=== PATIENT | male | born 1930 | race Caucasian/White ===

== ENCOUNTER 2017-06-07 13:06 | Observation (INO) | payer OTHER ==
[2017-06-07 13:24] VITALS: BP 138/81; PULSE 98; RESP 16; TEMP 97.5; O2SAT 97
[2017-06-07] MEDS ORDERED: MIRT1TAB PO (13:30)
[2017-06-07] MEDS ORDERED: TAMS0.4C4 (13:30)
[2017-06-07] MEDS ORDERED: ASPI-516 CHEW (13:30)
--- NOTE | 2017-06-07 13:38 | PD ---
HPI Chief Complaint: left arm and leg weakness Time Seen by Provider: 13:18 Travel History International Travel<30 days: No Contact w/Intl Traveler<30days: No Traveled to known affect area: No History of Present Illness HPI 86yo M with PMH of COPD, CKD presents to the ED with c/o left arm and left leg weakness since yesterday. Said last normal was 2 days ago. Denies any fever, chest pain, sob, n/v, abdominal pain, numbness. PFSH Past Medical History Cardiovascular Problems: Yes (A-Fib) Respiratory: Yes (COPD) ?: Not Social History Tobacco Use: Yes Allergies-Medications (Allergen,Severity, Reaction): Coded Allergies: No Known Allergies (Unverified , 06/07/17) Reported Meds & Prescriptions Reported Meds & Active Scripts Active Reported Diltiazem CD 24 HR 120 Mg Caper 120 Mg PO DAILY Aspirin 81 Mg Chew 81 Mg CHEW DAILY Mirtazapine 7.5 Mg Tab 7.5 Mg PO HS Review of Systems Except as stated in HPI: all other systems reviewed are Neg Physical Exam Narrative GENERAL: 86yo M not in distress. SKIN: Right lip and neck tj. HEAD: Atraumatic. Normocephalic. EYES: Pupils equal and round. No scleral icterus. No injection or drainage. ENT: No nasal bleeding or discharge. Mucous membranes pink and moist. NECK: Trachea midline. No JVD. CARDIOVASCULAR: Regular rate and rhythm. No murmur appreciated. RESPIRATORY: No accessory muscle use. Clear to auscultation. Breath sounds equal bilaterally. GASTROINTESTINAL: Abdomen soft, non-tender, nondistended. MUSCULOSKELETAL: No obvious deformities. No clubbing. No cyanosis. No edema. NEUROLOGICAL: Awake and alert. No obvious cranial nerve deficits. Motor grossly within normal limits. Normal speech. NIH stroke 0. Sensation equal. PSYCHIATRIC: Appropriate mood and affect; insight and judgment normal. Data Data Last Documented VS Vital Signs Date Time Temp Pulse Resp B/P (MAP) Pulse Ox O2 Delivery O2 Flow Rate FiO2 06/07/17 15:29 80 125/64 (84) 93 06/07/17 13:24 97.[address] Brain W/O Iv Contrast(Rout) (06/07/17 ) Complete Blood Count With Diff (06/07/17 13:28) Basic Metabolic Panel (Bmp) (06/07/17 13:28) Prothrombin Time / Inr (Pt) (06/07/17 13:28) Act Partial Throm Time (Ptt) (06/07/17 13:28) Aspirin (Aspirin) (06/07/17 15:45) Admit Order (Ed Use Only) (06/07/17 15:46) Labs Laboratory Tests Test 06/07/17 13:58 White Blood Count 9.4 TH/MM3 Red Blood Count 4.45 MIL/MM3 Hemoglobin 13.3 GM/DL Hematocrit 39.8 % Mean Corpuscular Volume 89.4 FL Mean Corpuscular Hemoglobin 29.8 PG Mean Corpuscular Hemoglobin Concent 33.4 % Red Cell Distribution Width 15.4 % Platelet Count 120 TH/MM3 Mean Platelet Volume 10.4 FL Neutrophils (%) (Auto) 51.3 % Lymphocytes (%) (Auto) 31.0 % Monocytes (%) (Auto) 13.4 % Eosinophils (%) (Auto) 3.0 % Basophils (%) (Auto) 1.3 % Neutrophils # (Auto) 4.8 TH/MM3 Lymphocytes # (Auto) 2.9 TH/MM3 Monocytes # (Auto) 1.3 TH/MM3 Eosinophils # (Auto) 0.3 TH/MM3 Basophils # (Auto) 0.1 TH/MM3 CBC Comment AUTO DIFF Differential Comment AUTO DIFF CONFIRMED Platelet Estimate LOW Platelet Morphology Comment ENLARGED Red Cell Morphology Comment NORMAL Prothrombin Time 10.8 SEC Prothromb Time International Ratio 1.1 RATIO Activated Partial Thromboplast Time 26.9 SEC Blood Urea Nitrogen 21 MG/DL Creatinine 0.99 MG/DL Random Glucose 115 MG/DL Calcium Level 9.6 MG/DL Sodium Level 137 MEQ/L Potassium Level 4.5 MEQ/L Chloride Level 103 MEQ/L Carbon Dioxide Level 28.8 MEQ/L Anion Gap 5 MEQ/L Estimat Glomerular Filtration Rate 71 ML/MIN MDM Medical Decision Making Medical Screen Exam Complete: Yes Emergency Medical Condition: Yes Differential Diagnosis CVA vs. TIA Narrative Course 86yo M with c/o left arm and leg weakness since yesterday. On physical exam, I do not appreciate weakness on the left side. Will do CT brain and labs. Labs reviewed, no leukocytosis. H/H normal. Thrombocytopenia at 120,000. BUN mildly elevated at 21. CT brain showed chronic ischemic small vessel vasculopathy. 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 No acute intracranial abnormality. Pt given aspirin. Will admit for TIA workup. Discussed with Dr. Ba and accepted to her service. Diagnosis Primary Impression: TIA (transient ischemic attack) Qualified Codes: G45.9 - Transient cerebral ischemic attack, unspecified Admitting Information Admitting Physician Requests: Teena Pickens DO Jun 07, 2017 13:38
--- NOTE | 2017-06-07 14:27 | RADRPT ---
EXAM DATE/TIME: 06/07/2017 14:14 [facility] COMPARISON: No previous studies available for comparison. INDICATIONS : Left upper and lower extremity weakness. RADIATION DOSE: 59.80 CTDIvol (mGy) MEDICAL HISTORY : Chronic obstructive pulmonary disease. Atrial fibrillation. SURGICAL HISTORY : None. ENCOUNTER: Initial ACUITY: 2 days PAIN SCALE: 0/10 LOCATION: cranial TECHNIQUE: Multiple contiguous axial images were obtained of the head. Using automated exposure control and adj ustment of the mA and/or kV according to patient size, radiation dose was kept as low as reasonably a chievable to obtain optimal diagnostic quality images. DICOM format image data is available electro nically for review and comparison. FINDINGS: CEREBRUM: The ventricles are normal for age. Remote appearing basal ganglia lacunar infarcts. There is low-dens ity throughout the white matter. No evidence of midline shift, mass lesion, hemorrhage or acute infar ction. No extra-axial fluid collections are seen. POSTERIOR FOSSA: The cerebellum and brainstem are intact. The 4th ventricle is midline. The cerebellopontine angle i s unremarkable. EXTRACRANIAL: The visualized portion of the orbits is intact. SKULL: The calvaria is intact. No evidence of skull fracture. CONCLUSION: 1. Chronic ischemic small vessel vasculopathy. 2. 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 3. No acute intracranial abnormality. Alistair Wu MD on June 07, 2017 at 14:23 Board Certified Radiologist. This report was verified electronically.
[2017-06-07 14:28] LABS: BICARBONATE 28.8 MEQ/L (21.0-32.0); CALCIUM 9.6 MG/DL (8.5-10.1)
[2017-06-07 14:30] LABS: INTERNATIONAL NORMALIZED RATIO 1.1 RATIO; PROTHROMBIN TIME - PATIENT 10.8 SEC (9.8-11.6)
[2017-06-07 14:32] VITALS: BP 123/76; PULSE 85; O2SAT 98
[2017-06-07 14:32] LABS: AUTOMATED NEUTROPHIL # 4.8 TH/MM3 (1.8-7.7); BASOPHIL # 0.1 TH/MM3 (0-0.2); BASOPHIL % 1.3 % (0.0-2.0); CREATININE 0.99 MG/DL (0.60-1.30); EOSINOPHIL # 0.3 TH/MM3 (0-0.4); HEMATOCRIT 39.8 % (39.0-51.0); HEMOGLOBIN 13.3 GM/DL (13.0-17.0); LYMPHOCYTE # 2.9 TH/MM3 (1.0-4.8); MEAN CELL VOLUME 89.4 FL (80.0-100.0); MEAN CORPUSCULAR HEMOGLOBIN 29.8 PG (27.0-34.0); MEAN CORPUSCULAR HGB CONC 33.4 % (32.0-36.0); MEAN PLATELET VOLUME 10.4 FL (7.0-11.0); MONO % 13.4 % (0.0-8.0); MONOCYTE # 1.3 TH/MM3 (0-0.9); NEUT % 51.3 % (16.0-70.0); PLATELET COUNT 120 TH/MM3 (150-450); RED BLOOD COUNT 4.45 MIL/MM3 (4.50-5.90); RED CELL DISTRIBUTION WIDTH 15.4 % (11.6-17.2); WHITE BLOOD COUNT 9.4 TH/MM3 (4.0-11.0)
[2017-06-07 15:29] VITALS: BP 125/64; PULSE 80; O2SAT 93
[2017-06-07] MEDS ORDERED: ASPIRIN 325 MG TAB PO ONE (15:45)
[2017-06-07] MEDS ORDERED: SODIUM CHLORIDE 0.9% FLUSH 10 ML FLUSH IV FLUSH PRN (16:15)
[2017-06-07] MEDS ORDERED: GLUCAGON 1 MG/ML VIAL OTHER PRN (16:15)
[2017-06-07] MEDS ORDERED: DEXTROSE 50% IN WATER 50 ML VIAL(D50) IV PUSH PRN (16:15)
[2017-06-07] MEDS ORDERED: DILT120C50 PO (16:31)
[2017-06-07 17:00] VITALS: BP 136/81; PULSE 105; RESP 20; TEMP 97; O2SAT 94
[2017-06-07] MEDS: INSULIN ASPART SUPPLEMENTAL SCALE SQ SCH ×2 (17:00→22:27)
[2017-06-07] MEDS: SODIUM CHLOR 0.9% 1000 ML INJ 1,000 ML IV SCH (17:13)
[2017-06-07 18:21] VITALS: PULSE 87
[2017-06-07 20:00] VITALS: BP 123/81; PULSE 120; PULSE 92; RESP 16; TEMP 98.4; O2SAT 95
[2017-06-07] MEDS ORDERED: PILL SPLITTER OTHER PRN (21:00)
[2017-06-07] MEDS: SODIUM CHLORIDE 0.9% FLUSH 10 ML FLUSH IV FLUSH SCH (22:26)
[2017-06-07] MEDS: MIRTAZAPINE 15 MG TAB PO SCH (22:26)
[2017-06-08] VITALS (8 sets, daily range): BP systolic 113–164; BP diastolic 72–89; PULSE 97–141; RESP 16–24; TEMP 96.9–98.6; O2SAT 95–96
[2017-06-08] MEDS: SODIUM CHLOR 0.9% 1000 ML INJ 1,000 ML IV SCH ×2 (06:14→09:48)
--- NOTE | 2017-06-08 07:53 | HHI.HP ---
[facility] Primary [facility] Physician Non-Staff Admission Diagnosis TIA Diagnoses: (1) Atrial fibrillation with RVR (2) TIA (transient ischemic attack) Chief Complaint: Left arm & leg weakness Travel History International Travel<30 Days: No Contact w/Intl Traveler <30 Da: No Traveled to Known Affected Are: No History of Present Illness The patient is an 86 year old male who presented to the ER with complaint of weakness in his left arm and left leg that started 2 days ago. He states that the weakness seems to be better today. He denies headache or recent vision changes. 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 Denies history of stroke. Denies chest pain or dyspnea. Does report cough ongoing for the past 6 weeks. Review of Systems Constitutional: DENIES: Fever, Chills, Night Sweats Eyes: DENIES: Blurred vision, Vision loss Ears, nose, mouth, throat: DENIES: Hearing loss Respiratory: COMPLAINS OF: Cough, DENIES: Wheezing, Sputum production, Shortness of breath Cardiovascular: DENIES: Chest pain, Palpitations, Dyspnea on Exertion, Lower Extremity Edema Gastrointestinal: DENIES: Abdominal pain, Constipation, Diarrhea, Nausea, Vomiting Genitourinary: DENIES: Urinary frequency, Urinary incontinence, Urgency, Hematuria, Dysuria, Nocturia Musculoskeletal: DENIES: Joint pain, Muscle aches Integumentary: DENIES: Pruritus, Rash Hematologic/lymphatic: DENIES: Bruising Neurologic: COMPLAINS OF: Localized weakness, DENIES: Headache, Paresthesias Past Family Social History Past Medical History Atrial fibrillation COPD Past Surgical History Right hand surgery Lip surgery Reported Medications Aspirin 81 mg daily Mirtazapine 7.5 mg daily at bedtime Flomax 0.4 mg daily at bedtime Diltiazem CD 120 mg daily Allergies: Coded Allergies: No Known Allergies (Unverified , 06/07/17) Family History Patient is adopted. Social History Smokes one pack per day. States that he has cut down over the last 2-3 months and is now at 3 cigarettes per day. Rare alcohol use. Denies illicit drug use. Physical Exam Vital Signs Vital Signs Date Time Temp Pulse Resp B/P (MAP) Pulse Ox O2 Delivery O2 Flow Rate FiO2 06/08/17 04:00 98.6 130 16 113/76 (88) 95 06/08/17 00:00 98.1 141 16 154/72 (99) 95 06/07/17 20:00 92 06/07/17 20:00 98.4 120 16 123/81 (95) 95 06/07/17 18:21 87 06/07/17 17:06 06/07/17 17:00 97.0 105 20 136/81 (99) 94 06/07/17 15:29 80 125/64 (84) 93 06/07/17 14:32 85 123/76 (92) 98 06/07/17 13:24 97.5 98 16 138/81 (100) 97 Physical Exam GENERAL: Elderly male in no acute distress. HEENT: Normocephalic, atraumatic. Pupils equal, round and reactive. Extraocular movements intact. No scleral icterus. No injection or drainage. Oropharynx is clear. Mucous membranes are moist. Large port wine stain with enlargement of the lower lip. CARDIOVASCULAR: Irregular, tachycardic. RESPIRATORY: Clear to auscultation. No wheezes, rales, or rhonchi. Breathing is non-labored. GASTROINTESTINAL: Abdomen soft, non-tender, nondistended. EXTREMITIES: No lower extremity edema. No calf tenderness. PSYCH: Alert and oriented x 3. NEURO: Cranial nerves II through XII are grossly intact. Strength is 4/5 in all 4 extremities, equal bilaterally. Laboratory Laboratory Tests Test 06/07/17 13:58 06/08/17 05:40 White Blood Count 9.4 Red Blood Count 4.45 Hemoglobin 13.3 Hematocrit 39.8 Mean Corpuscular Volume 89.4 Mean Corpuscular Hemoglobin 29.8 Mean Corpuscular Hemoglobin Concent 33.4 Red Cell Distribution Width 15.4 Platelet Count 120 Mean Platelet Volume 10.4 Neutrophils (%) (Auto) 51.3 Lymphocytes (%) (Auto) 31.0 Monocytes (%) (Auto) 13.4 Eosinophils (%) (Auto) 3.0 Basophils (%) (Auto) 1.3 Neutrophils # (Auto) 4.8 Lymphocytes # (Auto) 2.9 Monocytes # (Auto) 1.3 Eosinophils # (Auto) 0.3 Basophils # (Auto) 0.1 CBC Comment AUTO DIFF Differential Comment AUTO DIFF CONFIRMED Platelet Estimate LOW Platelet Morphology Comment ENLARGED Red Cell Morphology Comment NORMAL Prothrombin Time 10.8 Prothromb Time International Ratio 1.1 Activated Partial Thromboplast Time 26.9 Blood Urea Nitrogen 21 Creatinine 0.99 Random Glucose 115 Calcium Level 9.6 Sodium Level 137 Potassium Level 4.5 Chloride Level 103 Carbon Dioxide Level 28.8 Anion Gap 5 Estimat Glomerular Filtration Rate 71 Result Diagram: 06/07/17 1358 06/07/17 1358 Imaging Last Impressions Head CT 06/07/17 0000 Signed Impressions: Service Date/Time: Wednesday, June 07, 2017 14:14 - CONCLUSION: 1. Chronic ischemic small vessel vasculopathy. 2. 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 3. No acute intracranial abnormality. MD Jose Palma VTE Risk Assessment Jose VTE Risk Assessment: Mod/High Risk (score >= 2) Caprini Risk Assessment Model Point Value = 1 Point Value = 2 Point Value = 3 Point Value = 5 Age 41-60 Minor surgery BMI > 25 kg/m2 Swollen legs Varicose veins or History of unexplained or recurrent spontaneous Oral contraceptives or hormone replacement Sepsis (< 1 month) Serious lung disease, including pneumonia (< 1 month) Abnormal pulmonary function Acute myocardial infarction Congestive heart failure (< 1 month) History of inflammatory bowel disease Medical patient at bed rest Age 61-74 Arthroscopic surgery Major open surgery (> 45 min) Laparoscopic surgery (> 45 min) Malignancy Confined to bed (> 72 hours) Immobilizing plaster cast Central venous access Age >= 75 History of VTE Family history of VTE Factor V Leiden Prothrombin [id number] Lupus anticoagulant Anticardiolipin antibodies Elevated serum homocysteine Heparin-induced thrombocytopenia Other congenital or acquired thrombophilia Stroke (< 1 month) Elective arthroplasty Hip, pelvis, or leg fracture Acute spinal cord injury (< 1 month) Prophylaxis Regimen Total Risk Factor Score Risk Level Prophylaxis Regimen 0-1 Low Early ambulation 2 Moderate Order ONE of the following: *Sequential Compression Device (SCD) *Heparin 5000 units SQ BID 3-4 Higher Order ONE of the following medications: *Heparin 5000 units SQ TID *Enoxaparin/Lovenox 40 mg SQ daily (WT < 150 kg, CrCl > 30 mL/min) *Enoxaparin/Lovenox 30 mg SQ daily (WT < 150 kg, CrCl > 10-29 mL/min) *Enoxaparin/Lovenox 30 mg SQ BID (WT < 150 kg, CrCl > 30 mL/min) AND/OR *Sequential Compression Device (SCD) 5 or more Highest Order ONE of the following medications: *Heparin 5000 units SQ TID (Preferred with Epidurals) *Enoxaparin/Lovenox 40 mg SQ daily (WT < 150 kg, CrCl > 30 mL/min) *Enoxaparin/Lovenox 30 mg SQ daily (WT < 150 kg, CrCl > 10-29 mL/min) *Enoxaparin/Lovenox 30 mg SQ BID (WT < 150 kg, CrCl > 30 mL/min) AND *Sequential Compression Device (SCD) Assessment and Plan Assessment and Plan 1. TIA: Patient presented with left-sided weakness. Symptoms have improved. The patient is currently in atrial fibrillation. Continue aspirin. Will likely need full anticoagulation, but may present a fall risk. PT/OT/ST. Echocardiogram ordered. Check carotid ultrasound, brain MRI. Consult neurology. Fasting lipid panel is pending. The patient is not currently on a statin. 2. Atrial fibrillation with RVR: Rate increased to the 140s overnight, now 100- 110. Resume home dose of oral Cardizem and monitor on telemetry. Would benefit from full anticoagulation if no other contraindications. 3. History of COPD: Oxygen as needed. Bronchodilators as needed. 4. Cough: Nonproductive. Ongoing x 6 weeks. Patient has significant history of smoking. Check CXR. 5. Tobacco abuse: Counselled to quit smoking. 6. DVT prophylaxis: Khalif, KAI day. Problem Qualifiers (1) TIA (transient ischemic attack): Qualified Codes: G45.9 - Transient cerebral ischemic attack, unspecified Diallo Ellis MD Jun 08, 2017 07:52
[2017-06-08] MEDS: INSULIN ASPART SUPPLEMENTAL SCALE SQ SCH ×4 (08:00→20:19)
[2017-06-08] MEDS ORDERED: RESP: ALBUTEROL 2.5 MG/IPRATROPIUM 0.5 MG NEB (PRN) NEB (08:30)
--- NOTE | 2017-06-08 08:45 | RADRPT ---
EXAM DATE/TIME: 06/08/2017 08:01 [facility] COMPARISON: No previous studies available for comparison. INDICATIONS : Transient ischemic attack. MEDICAL HISTORY : Chronic obstructive pulmonary disease. Hypercholesterolemia. Atrial fibrillation. Peripheral vascul ar disease. Skin cancer, scalp. SURGICAL HISTORY : Hernia repair. Right hand surgery. ENCOUNTER: Initial ACUITY: 1 day PAIN SCORE: 0/10 LOCATION: Bilateral neck PEAK SYSTOLIC VELOCITIES (cm/sec): ICA/CCA RATIO: Right: 0.5 Left: 0.9 ICA: Right: 100 Left: 83 CCA: Right: 192 Left: 93 ECA: Right: 201 Left: 72 VERTEBRAL: Right: 56 antegrade Left: 56 antegrade Elevated flow velocities and ICA/CCA ratios have been found to correlate with increased degrees of vessel stenosis, calculated as percentage of diameter relative to a normal segment of distal ICA/CCA FINDINGS: RIGHT CAROTID: Patchy eccentric plaque in common carotid artery and at carotid bifurcation. Areas of stenosis less t vanessa 50%.. LEFT CAROTID: Eccentric plaque at the carotid bifurcation producing less than 50% stenosis VERTEBRAL ARTERIES: Antegrade flow is seen in both vertebral arteries. MISCELLANEOUS: None. CONCLUSION: No evidence of flow-limiting carotid stenosis. Claudio Salguero MD on June 08, 2017 at 8:38 Board Certified Radiologist. This report was verified electronically.
[2017-06-08] MEDS: ASPIRIN 325 MG TAB PO SCH (09:47)
[2017-06-08] MEDS: DILTIAZEM-CD 120 MG CAP ER PO SCH (09:47)
[2017-06-08] MEDS: SODIUM CHLORIDE 0.9% FLUSH 10 ML FLUSH IV FLUSH SCH ×2 (09:48→20:19)
[2017-06-08 10:35] LABS: CHOLESTEROL/ HDL RATIO 3.13 RATIO; HDL CHOLESTEROL 44.3 MG/DL (40.0-60.0)
--- NOTE | 2017-06-08 13:24 | RADRPT ---
EXAM DATE/TIME: 06/08/2017 11:16 [facility] COMPARISON: No previous studies available for comparison. INDICATIONS : TIA. Left sided weakness. MEDICAL HISTORY : Chronic obstructive pulmonary disease. Afib, Skin cancer. SURGICAL HISTORY : Abdominal aortic aneurysm repair. Hernia sx, Back sx. ENCOUNTER: Initial ACUITY: 2 day PAIN SCORE: 3/10 LOCATION: Left cranial TECHNIQUE: Multiplanar, multisequence MRI of the brain was performed without contrast. FINDINGS: There is moderate symmetric central and cortical atrophic change. Moderate T2 prolongation in periven tricular and subcortical white matter which has appearance of microvascular ischemic change. There a few punctate areas of focally restricted diffusion in the right frontoparietal subcortical wh ite matter and high convexity centrum semiovale consistent with small lacunar infarcts. There is no evidence of intracranial hemorrhage or mass. Extracranial structures are benign and intact. CONCLUSION: Several tiny areas of subacute infarction in the high convexity right frontoparietal subcortical radha on Atrophy and chronic ischemic white matter changes Claudio Salguero MD on June 08, 2017 at 13:10 Board Certified Radiologist. This report was verified electronically.
--- NOTE | 2017-06-08 13:32 | ECHRPT ---
Indication: cva/tia CONCLUSIONS Normal left ventricular size. The left ventricular systolic function is severely reduced with an estimated ejection fraction in th e range of 30-35%. The left atrial size is mildly dilated. The right atrial size is siwq-wn-yrzhwpoxdl dilated. aortic root 4.1 Xhpc-my-bjxwshhj mitral valve regurgitation. Mild aortic valve regurgitation. P1/2t 471 There is mild tricuspid valve regurgitation. The estimated pulmonary arterial pressure is 53 mmHg. BP: / HR: Rhythm: MEASUREMENTS (Male / Female) Normal Values Technical Quality:Good 2D ECHO LV Diastolic Diameter PLAX 4.8 cm 4.2 - 5.9 / 3.9 - 5.3 cm LV Systolic Diameter PLAX 4.1 cm IVS Diastolic Thickness 0.9 cm 0.6 - 1.0 / 0.6 - 0.9 cm LVPW Diastolic Thickness 1.0 cm 0.6 - 1.0 / 0.6 - 0.9 cm LV Relative Wall Thickness 0.4 RV Internal Dim ED PLAX 2.5 cm M-MODE Aortic Root Diameter MM 4.1 cm LA Systolic Diameter MM 3.6 cm LA Ao Ratio MM 0.9 AV Cusp Separation MM 1.7 cm DOPPLER AI Peak Velocity 389.0 cm/s AI Peak Gradient 60.5 mmHg AI Pressure Half Time 471.0 ms LV E' Lateral Velocity 6.5 cm/s LV E' Septal Velocity 6.5 cm/s TR Peak Velocity 328.0 cm/s TR Peak Gradient 43.0 mmHg Right Atrial Pressure 10.0 mmHg Pulmonary Artery Systolic Pressu 53.0 mmHg Right Ventricular Systolic Press 53.0 mmHg FINDINGS LEFT VENTRICLE Normal left ventricular size. The left ventricular systolic function is severely reduced with an estimated ejection fraction in th e range of 30-35%. RIGHT VENTRICLE Normal right ventricular size and systolic function. LEFT ATRIUM The left atrial size is mildly dilated. RIGHT ATRIUM The right atrial size is podi-te-oaatgwztny dilated. ATRIAL SEPTUM Normal atrial septal thickness without atrial level shunting by limited color doppler interrogation. AORTA aortic root 4.1 MITRAL VALVE Structurally normal mitral valve. Cuwg-qk-jkghwqpo mitral valve regurgitation. AORTIC VALVE Trileaflet aortic valve. Mild aortic valve regurgitation. P1/2t 471 TRICUSPID VALVE Structurally normal tricuspid valve. There is mild tricuspid valve regurgitation. The estimated pulmonary arterial pressure is 53 mmHg. PULMONARY VALVE No pulmonary valve regurgitation or stenosis. VESSELS The inferior vena cava is normal in size. PERICARDIUM No pericardial effusion. Pee Mccann MD, FACC (Electronically Signed) Final Date:08 June 2017 13:31
[2017-06-08] MEDS: MIRTAZAPINE 15 MG TAB PO SCH (20:18)
--- NOTE | 2017-06-08 21:57 | EKG ---
Date Performed: 06/08/2017 Time Performed: 08:56:07 PTAGE: 86 years EKG: ATRIAL FIBRILLATION WITH RAPID VENTRICULAR RESPONSE MINIMAL ST DEPRESSION ABNORMAL RHYTHM E CG NO PREVIOUS TRACING DOCTOR: Silvestre Moran Interpretating Date/Time 06/08/2017 21:55:31
[2017-06-08 22:30] LABS: HEMOGLOBIN A1C 6.3 % (4.3-6.0)
--- NOTE | 2017-06-08 22:35 | MB ---
cc: ENRIQUE MONTEZ M.D. DATE OF CONSULTATION: 06/08/2017 DATE OF : 1930, 86 years old. REASON FOR CONSULTATION: Stroke. HISTORY OF PRESENT ILLNESS: The patient is an 86 year-old man, very hard of hearing, who comes in with some left-sided weakness, leg and arm. He stated he lives in an assisted living facility. It started a couple of days prior. Otherwise he cannot give me much history. He has a history, per chart, of atrial fibrillation. When I asked him about that, he had no knowledge of it. History of COPD. PAST SURGICAL HISTORY: Right hand surgery. Lip surgery. CURRENT MEDICATIONS: 1. Baby aspirin. 2. Mirtazapine. 3. Flomax. 4. Diltiazem. He has BPH. ALLERGIES: None reported. FAMILY HISTORY: He is adopted. SOCIAL HISTORY: He still smokes a pack per day but trying to cut down. Rarely drinks. No illicit drug use. PHYSICAL EXAMINATION: VITAL SIGNS: Temperature is 97, heart rate 119, respiratory rate 20, blood pressure is 135/85. NECK: His neck is supple. No bruits. HEART: Irregularly irregular. LUNGS: Lungs are clear. NEUROLOGIC: He is awake and alert, very hard of hearing, speech is normal, pupils reactive. Face symmetrical. Tongue midline. Motor de la o he has some left-sided deficits at best a 4/5 proximally and distally, bilateral upper and lower extremity. Toes withdraws. DTRs are 1 to 2+. Gait is withheld. Cerebellar is normal on the right. LABORATORY DATA CBC: platelets 120,000. Chemistries: Glucose 115, A1c pending. Triglycerides 84, cholesterol 139, LDL 78, HDL 44.3, BUN is 21, GFR 71. Coags are normal. IMAGING STUDIES Brain MRI: He had tiny subacute infarcts in the right frontal parietal region. There is also white matter change and atrophy. Carotid ultrasound was unremarkable. 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 RECOMMENDATIONS: The recommendations are to start him on anticoagulation of choice. If there is no other contraindication, get a 2-D echocardiogram, watch him for RVR. If he is, then he needs to be placed on some Cardizem. Smoking cessation recommended. Discharge planning, depending on how he does with PT/OT. MD LUCRETIA Joshi /2:58 PM /10:24 PM
[2017-06-09] VITALS: BP 129/77; PULSE 108; RESP 18; TEMP 96.2
[2017-06-09] MEDS: SODIUM CHLOR 0.9% 1000 ML INJ 1,000 ML IV SCH (03:50)
[2017-06-09 06:48] LABS: CHLORIDE 108 MEQ/L (98-107); SODIUM (NA) 139 MEQ/L (136-145)
[2017-06-09 06:52] LABS: ALBUMIN 2.8 GM/DL (3.4-5.0); BICARBONATE 23.1 MEQ/L (21.0-32.0); BLOOD UREA NITROGEN 19 MG/DL (7-18); CALCIUM 8.9 MG/DL (8.5-10.1); GLUCOSE,RANDOM 85 MG/DL (74-106)
[2017-06-09 06:55] LABS: ALT (GPT) 16 U/L (12-78); AST (GOT) 19 U/L (15-37); GLOMERULAR FILTRATION RATE 91 ML/MIN (>89)
[2017-06-09 06:57] LABS: TOTAL BILIRUBIN ADULT 0.6 MG/DL (0.2-1.0); TOTAL PROTEIN 6.1 GM/DL (6.4-8.2)
[2017-06-09 06:58] LABS: ALKALINE PHOSPHATASE 82 U/L (45-117)
[2017-06-09 08:00] VITALS: BP 127/78; PULSE 103; PULSE 107; RESP 16; TEMP 96.5; O2SAT 94
[2017-06-09] MEDS: INSULIN ASPART SUPPLEMENTAL SCALE SQ SCH ×2 (08:00→12:00)
[2017-06-09] MEDS: ASPIRIN 325 MG TAB PO SCH (08:36)
[2017-06-09] MEDS: DILTIAZEM-CD 120 MG CAP ER PO SCH (08:36)
[2017-06-09] MEDS: SODIUM CHLORIDE 0.9% FLUSH 10 ML FLUSH IV FLUSH SCH (08:37)
--- NOTE | 2017-06-09 11:39 | RADRPT ---
EXAM DATE/TIME: 06/09/2017 11:12 [facility] COMPARISON: No previous studies available for comparison. INDICATIONS : Cough and congestion. MEDICAL HISTORY : Chronic obstructive pulmonary disease. Afib, Skin cancer. SURGICAL HISTORY : Abdominal aortic aneurysm repair. Hernia sx, Back sx. ENCOUNTER: Initial ACUITY: 1 week PAIN SCORE: 0/10 LOCATION: Bilateral chest FINDINGS: Diffuse reticulonodular interstitial thickening is present, most significantly in the perihilar regio ns and lower lung zones. Chronicity is undetermined. It appear to be small bilateral effusions. Cardi ac contour is grossly satisfactory for technique and projection. Mild kyphotic accentuation with dege nerative change in the spine. 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 Claudio Salguero MD on June 09, 2017 at 11:37 Board Certified Radiologist. This report was verified electronically.
[2017-06-09 12:00] VITALS: BP 138/62; PULSE 80; RESP 16; TEMP 97.4; O2SAT 96
--- NOTE | 2017-06-09 15:07 | HHI.FF ---
Face to Face Verification Diagnosis: (1) Weakness (2) Physical debility (3) Atrial fibrillation with RVR (4) TIA (transient ischemic attack) Physical Therapy Order: Evaluate and Treat, Improve ambulation, Strength and gait training Instructions: Strength and balance training I have seen patient Jose Roberto Ludwig on 06/09/17. My clinical findings support the need for the requested home health care services because: Ltd mobility - disease progression Deconditioned w/ increased weakness Limited ability to care for self High risk of falls I certify that my clinical findings support that this patient is homebound because: Unsteady gait/balance Unsafe to leave home unassisted Garcia Rockwell MD Jun 09, 2017 15:07
[2017-06-09] MEDS ORDERED: PLAV75TA29 PO (15:11)
[2017-06-09] MEDS ORDERED: ASPI81 CHEW (15:11)
--- NOTE | 2017-06-09 16:41 | HHI.DS ---
Discharge Summary Admission Date Jun 07, 2017 at 15:47 Discharge Date: Jun 09, 2017 Admitting Diagnosis TIA (1) Atrial fibrillation with RVR ICD Code: I48.91 - Unspecified atrial fibrillation Diagnosis: Principal (2) TIA (transient ischemic attack) ICD Code: G45.9 - Transient cerebral ischemic attack, unspecified Diagnosis: Principal Status: Acute Procedures None Brief History - From Admission The patient is an 86 year old male who presented to the ER with complaint of weakness in his left arm and left leg that started 2 days ago. He states that the weakness seems to be better today. He denies headache or recent vision changes. 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 Denies history of stroke. Denies chest pain or dyspnea. Does report cough ongoing for the past 6 weeks. CBC/BMP: 06/07/17 1358 06/09/17 0535 Significant Findings Laboratory Tests Test 06/07/17 13:58 06/08/17 05:40 06/09/17 05:35 Red Blood Count 4.45 MIL/MM3 (4.50-5.90) Platelet Count 120 TH/MM3 (150-450) Monocytes (%) (Auto) 13.4 % (0.0-8.0) Monocytes # (Auto) 1.3 TH/MM3 (0-0.9) Platelet Estimate LOW (NORMAL) Platelet Morphology Comment ENLARGED (NORMAL) Blood Urea Nitrogen 21 MG/DL (7-18) 19 MG/DL (7-18) Random Glucose 115 MG/DL (74-106) Estimat Glomerular Filtration Rate 71 ML/MIN (>89) Hemoglobin A1c 6.3 % (4.3-6.0) Total Protein 6.1 GM/DL (6.4-8.2) Albumin 2.8 GM/DL (3.4-5.0) Chloride Level 108 MEQ/L (98-107) Hospital Course Mr. Ludwig is an 86-year-old male. He came into the hospital originally with weakness in the left arm. Suspicion for CVA versus TIA was present. 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 This is possibly a new infarction versus TIA. Symptoms have improved. He is recommended to continue physical therapy at time of discharge. Neurology has also recommended increasing the patient's anticoagulation. Previously he is just on aspirin. He is a fall risk so I discussed with the patient and his daughter occurred to discuss options for blood thinners. Options from a complete conversion to stronger blood thinners such as Xarelto versus remaining on current dose of aspirin and the benefits and risks of each were discussed. At this point to respect both of his risk for CVA and his risk for falls the patient and his daughter have decided that Plavix with aspirin is an ex-modality to try. He is determined to be stable by physical therapy for transfer back to his assisted living facility. Physical therapy will continue at that location. Medically stable for discharge to home today. Pt Condition on Discharge: Stable Discharge Disposition: Discharge Home Discharge Time: > 30 minutes Discharge Instructions DIET: Follow Instructions for: Heart Healthy Diet Activities you can perform: Regular-No Restrictions Follow up Referrals: PCP Follow-up - 2 Weeks SNF/[facility]/ with [facility] New Medications: Aspirin (Tgt Aspirin) 81 Mg Chw 81 MG CHEW BID for Blood Clot Prevention, #60 EA Clopidogrel (Plavix) 75 Mg Tab 75 MG PO HS for Blood Clot Prevention, #30 TAB Continued Medications: Diltiazem CD 24 HR (Diltiazem CD 24 HR) 120 Mg Caper 120 MG PO DAILY, #30 CAP 0 Refills Mirtazapine (Mirtazapine) 7.5 Mg Tab 7.5 MG PO HS for Depression Control, #30 TAB 0 Refills Discontinued Medications: Aspirin (Aspirin) 81 Mg Chew 81 MG CHEW DAILY, TAB 0 Refills Garcia Rockwell MD Jun 09, 2017 16:40
[2017-06-09] MEDS ORDERED: CLOPIDOGREL 75 MG TAB PO SCH (21:00)
[2017-06-10] MEDS ORDERED: ASPIRIN 81 MG CHEW TAB CHEW SCH (09:00)
== END 2017-06-09 17:47 | disposition home or self-care (01) ==
LOC: PHED 13:06 → PHEDA 15:47 → PH3B 17:00
PROVIDERS: ADMIT Hospitalist; ATTEND Hospitalist
DX: G45.9 Transient cerebral ischemic attack, unspecified (principal); I48.91 Unspecified atrial fibrillation; J44.9 Chronic obstructive pulmonary disease, unspecified; H35.30 Unspecified macular degeneration; E78.00 Pure hypercholesterolemia, unspecified; I73.9 Peripheral vascular disease, unspecified; R00.0 Tachycardia, unspecified; Q82.5 Congenital non-neoplastic nevus; M79.602 Pain in left arm; N18.9 Chronic kidney disease, unspecified; D69.6 Thrombocytopenia, unspecified; R94.31 Abnormal electrocardiogram [ECG] [EKG]; H91.90 Unspecified hearing loss, unspecified ear; F17.210 Nicotine dependence, cigarettes, uncomplicated; Z79.82 Long term (current) use of aspirin; Z85.828 Personal history of other malignant neoplasm of skin
CPT/HCPCS: 70450; 70551; 71046; 80048; 80053; 80061; 82948; 83036; 85025; 85610; 85730; 93005; 93306; 93880; 96360; 96361; 96372; 97110; 97116; 97162; 97166; 99285; G0378; G8987; G8988; J1815; J7030